=== PATIENT | male | born 1980 | race Caucasian/White ===

== ENCOUNTER 2022-05-27 19:48 | Emergency (ER) | payer MEDICAID ==
[~2022-05-27] VITALS: Ht 165.1 cm; Wt 80.7 kg
[2022-05-27 20:00] VITALS: BP_SYST 148
--- NOTE | 2022-05-27 20:09 | NUR ---
patient is in ER #[id number]
--- NOTE | 2022-05-27 20:10 | NUR ---
in to see patient
[2022-05-27] MEDS ORDERED: ASPIRIN 81 MG TAB.CHEW PO ONE (20:15)
[2022-05-27] MEDS ORDERED: ONDANSETRON HCL 4 MG/2 ML VIAL IVP ONE (20:15)
[2022-05-27] MEDS ORDERED: MORPHINE 4 MG INJ. 4 MG/ML VIAL IVP ONE (20:15)
--- NOTE | 2022-05-27 20:20 | NUR ---
Note [email or web address] in EDM - 05/28/22 at 0016 by [email or web address] PATIENT BROUGHT ACCOMPANIED BY FOR SUBSTERNAL CHEST PAIN RADIATING TO THE RIGHT SIDE STARTING AT 1930. PATIENT REPORTS THAT HE WAS DRINKING A BEER WHEN IT OCCURRED. PATIENT DENIES ANY HEADACHES, NAUSEA, VOMITING, DIARRHEA OR SHORTNESS OF BREATH. PAIN 1010 pt dns any [place]. +sob, . no n/v/d/abd pain. no fv. no cough. no back pain. no dz. no blurry vision. no parathesia. no weakness.
--- NOTE | 2022-05-27 20:27 | NUR ---
medicated per md orders. Patient tolerated well. VSS
--- NOTE | 2022-05-27 20:34 | NUR ---
PT TO CT SCAN
[2022-05-27] MEDS ORDERED: iohexoL 350 mgI/mL, 100 ML INFUS..BTL IV ONE (20:47)
[2022-05-27 21:09] LABS: BASOPHILS # (AUTO) 0.1 K/uL (0.0-0.2); BASOPHILS % (AUTO) 0.7 % (0.0-2.0); EOSINOPHILS # (AUTO) 0.2 K/uL (0.0-0.4); EOSINOPHILS % (AUTO) 2.3 % (0.0-4.0); LYMPHOCYTES # (AUTO) 3.6 K/uL (1.0-5.5); LYMPHOCYTES % (AUTO) 44.5 % (20.5-51.5); MEAN CORPUSCULAR HEMOGLOBIN 32 pg (27-31); MEAN CORPUSCULAR HGB CONC 35 % (32-36); MEAN CORPUSCULAR VOLUME 90 fL (79.0-98.0); MONOCYTES # (AUTO) 0.5 K/uL (0.0-1.0); MONOCYTES % (AUTO) 6.2 % (1.7-9.3); NEUTROPHILS # (AUTO) 3.7 K/uL (1.8-7.7); NEUTROPHILS % (AUTO) 46.3 % (40.0-70.0); PLATELET COUNT (AUTO) 257 K/uL (130-430); RED BLOOD CELL COUNT(AUTO) 4.76 MIL/uL (4.2-6.2); WHITE BLOOD COUNT (AUTO) 8.1 K/uL (4.8-10.8)
[2022-05-27 21:36] LABS: ANION GAP 6 (5-15); CALCIUM 8.8 mg/dL (8.4-11.0); CHLORIDE 101 mmol/L (98-107); CREATININE 0.96 mg/dL (0.55-1.30); GLUCOSE 140 mg/dL (70-99); POTASSIUM 3.3 mmol/L (3.5-5.1); SODIUM SERUM 137 mmol/L (136-145); UREA NITROGEN, BLOOD 16 mg/dL (8-21)
[2022-05-27 21:44] LABS: ALANINE AMINOTRANSFERASE 39 U/L (12-78); TOTAL BILIRUBIN 0.5 mg/dL (0.0-1.0)
[2022-05-27 21:47] LABS: GFR AFRICAN AMERICAN 110 mL/min (>90)
[2022-05-27 22:14] LABS: ASPARTATE AMINOTRANSFERASE 76 U/L (10-37)
[2022-05-28] MEDS ORDERED: NAPR-1169 PO (00:08)
[2022-05-28] MEDS ORDERED: HYDR-3917 PO (00:08)
--- NOTE | 2022-05-28 00:25 | NUR ---
Patient given written and verbal discharge instructions and verbalizes understanding. ER MD discussed with patient the results and treatment provided. Patient in stable condition. ID arm band removed. IV catheter removed intact and dressing applied, no active bleeding. Rx of NORCO AND NAPROXEN given. Patient educated on pain management and to follow up with PMD. Pain Scale 0/10 Opportunity for questions provided and answered. Medication side effect fact sheet provided.
[2022-05-28 00:26] VITALS: BP_SYST 146
== END 2022-05-28 00:25 | disposition home or self-care (01) ==
LOC: SED 19:48
DX: R07.9 Chest pain, unspecified (principal); Z79.899 Other long term (current) drug therapy
CPT/HCPCS: 36415; 71045; 71275; 76376; 80053; 83880; 84484; 85025; 93005; 96374; 96375; 99285; J2270; J2405; Q9967